=== PATIENT | female | born 1980 ===

== ENCOUNTER 2022-03-24 11:43 | Emergency (ER) | payer MEDICAID ==
[2022-03-24 13:55] VITALS: BP 129/68
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
== END 2022-03-24 16:10 | disposition home or self-care (01) ==
LOC: ED 11:43
DX: L03.311 Cellulitis of abdominal wall (principal); Z79.899 Other long term (current) drug therapy
CPT/HCPCS: 99282